=== PATIENT | male | born 1965 | race Caucasian/White ===

== ENCOUNTER 2017-08-30 01:49 | Emergency (ER) | payer BC ==
[~2017-08-30] VITALS: Ht 170.2 cm; Wt 85.0 kg
[2017-08-30 01:50] VITALS: BP 171/76; PULSE 90; RESP 28; TEMP 97.7; O2SAT 87
[2017-08-30] MEDS ORDERED: RESP: ALBUTEROL 2.5 MG/IPRATROPIUM 0.5 MG NEB (SCH) ONE ×2 (02:44→02:54)
[2017-08-30 02:48] LABS: AUTOMATED NEUTROPHIL # 8.8 TH/MM3 (1.8-7.7); BASOPHIL # 0.3 TH/MM3 (0-0.2); BASOPHIL % 2.5 % (0.0-2.0); EOSINOPHIL # 0.5 TH/MM3 (0-0.4); EOSINOPHIL % 4.7 % (0.0-4.0); HEMATOCRIT 47.9 % (39.0-51.0); HEMOGLOBIN 16.2 GM/DL (13.0-17.0); LYMPH % 8.2 % (9.0-44.0); LYMPHOCYTE # 0.9 TH/MM3 (1.0-4.8); MEAN CORPUSCULAR HEMOGLOBIN 29.4 PG (27.0-34.0); MEAN CORPUSCULAR HGB CONC 33.8 % (32.0-36.0); MEAN PLATELET VOLUME 9.6 FL (7.0-11.0); MONO % 7.2 % (0.0-8.0); MONOCYTE # 0.8 TH/MM3 (0-0.9); NEUT % 77.4 % (16.0-70.0); PLATELET COUNT 161 TH/MM3 (150-450); RED BLOOD COUNT 5.51 MIL/MM3 (4.50-5.90); RED CELL DISTRIBUTION WIDTH 14.1 % (11.6-17.2); WHITE BLOOD COUNT 11.4 TH/MM3 (4.0-11.0)
[2017-08-30 02:56] LABS: PROTHROMBIN TIME - PATIENT 10.6 SEC (9.8-11.6)
[2017-08-30] MEDS ORDERED: cefTRIAXone INJ 1,000 MG in SODIUM CHLORIDE 0.9% INJ 100 ML IV ONE (03:00)
[2017-08-30] MEDS ORDERED: methylPREDNISolone SOD SUCC 125 MG/2 ML VIAL IV PUSH ONE (03:00)
[2017-08-30] MEDS ORDERED: SODIUM CHLORIDE 0.9% FLUSH 10 ML FLUSH IVF PRN (03:00)
[2017-08-30] MEDS: RESP: ALBUTEROL 2.5 MG/IPRATROPIUM 0.5 MG NEB (SCH) INH ×3 (03:00→03:30)
[2017-08-30] MEDS ORDERED: AZITHROMYCIN INJ 500 MG in SODIUM CHLOR 0.9% 250 ML INJ 250 ML IV ONE (03:00)
--- NOTE | 2017-08-30 03:04 | RADRPT ---
EXAM DATE: 08/30/2017 2:39 AM EDT AGE/SEX: 52 years / Male INDICATIONS: Chest pain, short of breath. CLINICAL DATA: This is the patient's initial encounter. Patient reports that signs and symptoms have been present for 2 days and indicates a pain score of 5/10. MEDICAL/SURGICAL HISTORY: None. None. COMPARISON: No prior exams available for comparison. FINDINGS: A single AP view of the chest demonstrates the lungs to be symmetrically aerated without evidence of mass, infiltrate or effusion. The cardiomediastinal contours are unremarkable. Osseous structures a re intact. CONCLUSION: No acute cardiopulmonary process. Electronically signed by: Kilo Alston MD 08/30/2017 3:03 AM EDT
[2017-08-30 03:05] LABS: ALBUMIN 4.2 GM/DL (3.4-5.0); ALT (GPT) 21 U/L (12-78); BICARBONATE 26.6 MEQ/L (21.0-32.0); BLOOD UREA NITROGEN 10 MG/DL (7-18); CALCIUM 9.2 MG/DL (8.5-10.1); CHLORIDE 107 MEQ/L (98-107); CREATININE 0.93 MG/DL (0.60-1.30); GLOMERULAR FILTRATION RATE 86 ML/MIN (>89); GLUCOSE,RANDOM 96 MG/DL (74-106); MAGNESIUM 2.1 MG/DL (1.5-2.5); SODIUM (NA) 143 MEQ/L (136-145)
[2017-08-30 03:16] LABS: ALKALINE PHOSPHATASE 93 U/L (45-117); AST (GOT) 17 U/L (15-37); TOTAL BILIRUBIN ADULT 0.6 MG/DL (0.2-1.0); TOTAL PROTEIN 8.4 GM/DL (6.4-8.2); TROPONIN I LESS THAN 0.02 NG/ML (0.02-0.05)
[2017-08-30 03:40] LABS: BANDS 3 % (0-6); LYMPHOCYTES 15 % (9-44); MONOCYTES 8 % (0-8); NEUTROPHIL # MANUAL DIFF 8.3 TH/MM3 (1.8-7.7); POLYS (SEG NEUTROPHILS) 70 % (16-70)
[2017-08-30] MEDS ORDERED: CEFU1TAB20 PO (06:02)
[2017-08-30] MEDS ORDERED: ZITH250T PO (06:02)
[2017-08-30] MEDS ORDERED: MEDR4PAK PO (06:02)
[2017-08-30] MEDS ORDERED: ALBUTEROL SULFATE 90 MCG/ACT HFA 8 GM INHALER INH ONE (06:15)
--- NOTE | 2017-08-30 06:35 | PD ---
HPI Chief Complaint: Respiratory Distress Time Seen by Provider: 02:09 Travel History International Travel<30 days: No Contact w/Intl Traveler<30days: No Traveled to known affect area: No History of Present Illness HPI The patient is a 52 year old male who presents to the [facility] emergency department with a history of shortness of breath that began with a cough on Tuesday. He reports that he has a productive sounding cough, however he is unable to bring it up. He reports having chest congestion and wheezing. He denies ever using an inhaler in the past. He reports that he does smoke 1 pack of cigarettes per day. He reports having a tightening sensation in the center of his chest associated with this. He denies having any nausea, vomiting, or diarrhea. He denies having any known recent fevers. The patient's medical history is complicated by IV opiate use. He reports that he last used earlier today. He denies any prior history of endocarditis. He denies any prior history of HIV or hepatitis. On review of systems otherwise, the patient denies having any neck pain, abdominal pain, vomiting, diarrhea, urinary symptoms, or neurologic symptoms. [facility] Past Medical History Narrative Medical The patient's past medical history is significant for daily tobacco use, IV drug use. Immunizations Current: Yes Tetanus Vaccination: Unknown Influenza Vaccination: No Past Surgical History Narrative Surgical The patient's past surgical history is unremarkable. Social History Alcohol Use: No Tobacco Use: Yes (1 pack/day) Substance Use: Yes (IV drug use) Allergies-Medications (Allergen,Severity, Reaction): Coded Allergies: No Known Allergies (Unverified , 08/30/17) Reported Meds & Prescriptions Reported Meds & Active Scripts Active Medrol Dosepak (Methylprednisolone) 4 Mg Dspk 4 Mg PO DIRECTED Per Pharmacist direction Zithromax (Azithromycin) 250 Mg Tab 250 Mg PO DAILY 4 Days Cefuroxime (Cefuroxime Axetil) 500 Mg Tab 500 Mg PO BID 10 Days Review of Systems Except as stated in HPI: all other systems reviewed are Neg General / Constitutional: No: Fever Eyes: No: Visual changes HENT: Positive: Congestion, No: Headaches Cardiovascular: Positive: Chest Pain or Discomfort, Dyspnea on exertion Respiratory: Positive: Cough, Shortness of Breath Gastrointestinal: No: Abdominal Pain Genitourinary: No: Dysuria Musculoskeletal: No: Pain Skin: No Rash Neurologic: No: Weakness, Focal Abnormalities, Change in Mentation, Slurred Speech, Sensory Disturbance Psychiatric: No: Depression Endocrine: No: Polydipsia Hematologic/Lymphatic: No: Easy Bruising Physical Exam Narrative General: The patient is a well-developed well-nourished male, short of breath on arrival , slightly diaphoretic, tachypneic. Head and Neck exam: Head is normocephalic atraumatic. Eyes: EOMI, pupils are equal round and reactive to light. Nose: Midline septum with pink mucous membranes Mouth: Dentition unremarkable. Moist mucus membranes. Posterior oropharynx is not erythematous. No tonsillar hypertrophy. Uvula midline. Airway patent. Neck: No palpable lymphadenopathy. No nuchal rigidity. No thyromegaly. Cardiovascular: Regular rate and rhythm without murmurs, gallops, or rubs. No pulse deficit to the extremities on simultaneous auscultation and palpation of his radial artery. Lungs: The patient is tachypneic. The patient has expiratory wheezes audible anteriorly and posteriorly. The patient has accessory muscle use noted. No tripoding or paroxysmal abdominal breathing. Abdomen: Soft, without tenderness to palpation in all 4 quadrants of the abdomen. No guarding, rebound, or rigidity. Normal bowel sounds are audible. No tenderness on palpation of McBurney's point. Negative Acosta sign. Extremities: No clubbing, cyanosis, or edema. 2+ pulses in all 4 extremities. No calf tenderness on palpation. Back: No spinous process tenderness to palpation. No costovertebral angle tenderness to palpation. Neurologic Exam: Grossly nonfocal. Skin Exam: No rash noted. Intact skin that is warm and moist. Data Data Last Documented VS Vital Signs Date Time Temp Pulse Resp B/P (MAP) Pulse Ox O2 Delivery O2 Flow Rate FiO2 08/30/17 02:07 90 18 94 Nasal Cannula 2.00 08/30/17 01:50 97.7 171/76 (107) Orders Orders Electrocardiogram (08/30/17 02:10) Complete Blood Count With Diff (08/30/17 02:10) Comprehensive Metabolic Panel (08/30/17 02:10) Creatine Kinase (Cpk) (08/30/17 02:10) Ckmb (Isoenzyme) Profile (08/30/17 02:10) Troponin I (08/30/17 02:10) B-Type Natriuretic Peptide (08/30/17 02:10) Prothrombin Time / Inr (Pt) (08/30/17 02:10) Act Partial Throm Time (Ptt) (08/30/17 02:10) Blood Culture (08/30/17 02:10) C-Reactive Protein (Crp) (08/30/17 02:10) Lipase (08/30/17 02:10) Urinalysis - C+S If Indicated (08/30/17 02:10) Westergren Sedimentation Rate (08/30/17 02:10) Magnesium (Mg) (08/30/17 02:10) Chest, Single Ap (08/30/17 02:10) Iv Access Insert/Monitor (08/30/17 02:10) Ecg Monitoring (08/30/17 02:10) Oximetry (08/30/17 02:10) Drug Screen, Random Urine (08/30/17 02:10) Alcohol (Ethanol) (08/30/17 02:10) Lactic Acid Sepsis Protocol (08/30/17 02:10) Albuterol-Ipratropium Neb (Duoneb Neb) (08/30/17 02:44) Sodium Chloride 0.9% Flush (Ns Flush) (08/30/17 03:00) Methylprednisolone So Succ Inj (Solumedr (08/30/17 03:00) Albuterol-Ipratropium Neb (Duoneb Neb) (08/30/17 03:00) Ceftriaxone Inj (Rocephin Inj) (08/30/17 03:00) Azithromycin Inj (Zithromax Inj) (08/30/17 03:00) Albuterol-Ipratropium Neb (Duoneb Neb) (08/30/17 02:54) CKMB (08/30/17 02:15) CKMB% (08/30/17 02:15) Albuterol Hfa Inh (Proair Hfa Inh) (08/30/17 06:15) Labs Laboratory Tests Test 08/30/17 02:15 08/30/17 02:30 White Blood Count 11.4 TH/MM3 Red Blood Count 5.51 MIL/MM3 Hemoglobin 16.2 GM/DL Hematocrit 47.9 % Mean Corpuscular Volume 87.0 FL Mean Corpuscular Hemoglobin 29.4 PG Mean Corpuscular Hemoglobin Concent 33.8 % Red Cell Distribution Width 14.1 % Platelet Count 161 TH/MM3 Mean Platelet Volume 9.6 FL Neutrophils (%) (Auto) 77.4 % Lymphocytes (%) (Auto) 8.2 % Monocytes (%) (Auto) 7.2 % Eosinophils (%) (Auto) 4.7 % Basophils (%) (Auto) 2.5 % Neutrophils # (Auto) 8.8 TH/MM3 Lymphocytes # (Auto) 0.9 TH/MM3 Monocytes # (Auto) 0.8 TH/MM3 Eosinophils # (Auto) 0.5 TH/MM3 Basophils # (Auto) 0.3 TH/MM3 CBC Comment AUTO DIFF Differential Total Cells Counted 100 Neutrophils % (Manual) 70 % Band Neutrophils % 3 % Lymphocytes % 15 % Monocytes % 8 % Eosinophils % 4 % Neutrophils # (Manual) 8.3 TH/MM3 Differential Comment FINAL DIFF MANUAL Atypical Lymphocytes % Platelet Estimate NORMAL Platelet Morphology Comment NORMAL Red Cell Morphology Comment NORMAL Prothrombin Time 10.6 SEC Prothromb Time International Ratio 1.0 RATIO Activated Partial Thromboplast Time 29.8 SEC Blood Urea Nitrogen 10 MG/DL Creatinine 0.93 MG/DL Random Glucose 96 MG/DL Total Protein 8.4 GM/DL Albumin 4.2 GM/DL Calcium Level 9.2 MG/DL Magnesium Level 2.1 MG/DL Alkaline Phosphatase 93 U/L Aspartate Amino Transf (AST/SGOT) 17 U/L Alanine Aminotransferase (ALT/SGPT) 21 U/L Total Bilirubin 0.6 MG/DL Sodium Level 143 MEQ/L Potassium Level 3.8 MEQ/L Chloride Level 107 MEQ/L Carbon Dioxide Level 26.6 MEQ/L Anion Gap 9 MEQ/L Estimat Glomerular Filtration Rate 86 ML/MIN Total Creatine Kinase 238 U/L Creatine Kinase MB 3.2 NG/ML Troponin I LESS THAN 0.02 NG/ML C-Reactive Protein 2.30 MG/DL B-Type Natriuretic Peptide 14 PG/ML Lipase 54 U/L Ethyl Alcohol Level LESS THAN 3 MG/DL Erythrocyte Sedimentation Rate 5 mm/hr Lactic Acid Level 0.8 mmol/L MDM Medical Decision Making Medical Screen Exam Complete: Yes Emergency Medical Condition: Yes Medical Record Reviewed: Yes Differential Diagnosis Reactive airway, versus pneumonia, versus endocarditis, versus congestive heart failure, versus acute coronary syndrome Narrative Course During the course of the patient's emergency department visit, the patient's history, examination, and differential diagnosis were reviewed with the patient. The patient was placed on a monitoring and evaluation advisor with oximetry and frequent blood pressure monitoring. The patient had IV access obtained and blood work sent for analysis. The patient had an EKG done on arrival. The patient's EKG reveals a sinus rhythm heart rate of 89, QRS duration 90 ms, QTC [address] segment elevation is noted. T waves are inverted in V1. The baseline is jittery which could be affecting interpretation. Blood cultures x2 were drawn, lactic acid was sent for analysis. The patient's O2 saturation on room air was 87%. The patient was placed on 2 L nasal cannula O2 and came up to 94%. The patient was initially provided Rocephin 1 g IV, Zithromax 500 IV, Solu- Medrol 125 mg IV, duo nebs x3. The patient's laboratory studies were reviewed and remarkable for a CMP is remarkable for a GFR of 86, total protein 8.4, lipase within normal limits, cardiac enzymes within normal limits, C-reactive protein elevated at 2.3, BNP 14 , lactic acid 0.4, CBC shows a white count of 11.4, hemoglobin 16.2, platelets 161 with 77.4 neutrophils, sedimentation rate is 5, PT PTT within normal limit, alcohol level is less than 3 Radiology studies were reviewed and remarkable for Last Impressions Chest X-Ray 08/30/17 0210 Signed Impressions: CONCLUSION: No acute cardiopulmonary process. The patient on reexamination continues to have wheeze the patient was instructed that my plan was admission for observation, continued IV steroids and nebulizer treatments. The patient refuses. The patient reports that he is in opioid addict and that he is already experiencing some withdrawal symptoms. I explained that we would be able to treat him for any withdrawal symptoms and my concern was the possibility of respiratory failure. Patient continues to refuse admission. The patient was given 2 puffs of a pro-air inhaler and this was dispensed to him. The patient will also be given a prescription for a Medrol Dosepak taper, Ceftin, Zithromax. He is encouraged to come back to the emergency department if he develops any new or worsening signs or symptoms. AMA: The risks of leaving against medical advice without further evaluation treatment were discussed with the patient. These risks include cardiac dysfunction, cardiac dysrhythmia, possible heart attack, respiratory failure, or . The patient indicated understanding of these risks and appeared to have the capacity to make this decision. Diagnosis Primary Impression: Reactive airway disease Qualified Codes: J45.41 - Moderate persistent asthma with (acute) exacerbation Additional Impressions: IV drug user Tobacco abuse Referrals: [facility] 1 day Patient Instructions: General Instructions, Reactive Airways Disease (ED) Additional Instructions: The patient is encouraged to quit smoking. Med/Other Pt SpecificInfo: Prescription(s) given Scripts Methylprednisolone Dosepak (Medrol Dosepak) 4 Mg Dspk 4 MG PO DIRECTED, #1 DSPK 0 Refills Per Pharmacist direction Prov: Tavia Ward MD 08/30/17 Azithromycin (Zithromax) 250 Mg Tab 250 MG PO DAILY for Infection for 4 Days, #4 TAB 0 Refills Prov: Tavia Ward MD 08/30/17 Cefuroxime (Cefuroxime) 500 Mg Tab 500 MG PO BID for Infection for 10 Days, #20 TAB 0 Refills Prov: Tavia Ward MD 08/30/17 Disposition: 07 AGAINST MEDICAL ADVICE Condition: Fair Tavia Ward MD Aug 30, 2017 06:35
[2017-08-30 06:49] VITALS: BP 122/74
--- NOTE | 2017-08-30 13:30 | EKG ---
Date Performed: 08/30/2017 Time Performed: 02:08:33 PTAGE: 52 years EKG: Baseline artifact present Sinus rhythm NORMAL ECG NO PREVIOUS TRACING DOCTOR: Nadeem Ortiz Interpretating Date/Time 08/30/2017 13:29:58
== END 2017-08-30 06:49 | disposition left against medical advice (07) ==
LOC: NEPC 01:49
DX: J45.41 Moderate persistent asthma with (acute) exacerbation (principal); R07.89 Other chest pain; F11.20 Opioid dependence, uncomplicated; F17.210 Nicotine dependence, cigarettes, uncomplicated; Z53.29 Procedure and treatment not carried out because of patient's decision for other reasons
CPT/HCPCS: 71045; 80053; 80307; 82550; 82552; 83605; 83690; 83735; 83880; 84484; 85007; 85027; 85610; 85652; 85730; 86140; 87040; 93005; 94640; 94664; 96365; 96366; 96368; 96375; 99285; J0456; J0696; J2930; J7050